=== PATIENT | female | born 1995 | race African-American/Black ===

== ENCOUNTER → 2018-07-06 | Outpatient (CLI) | payer OTHER ==
--- NOTE | 2018-07-06 11:45 | KCIC ---
MR of the right knee Indication: Posterolateral right knee pain for 2 weeks. No known injury. Technique: The standard multiplanar sequences are obtained. FINDINGS: Artifact: No significant image degradation. Medial meniscus:Intact. Lateral meniscus: Intact. Anterior cruciate ligament: Intact Posterior cruciate ligament: Intact Medial collateral ligament: Intact. Lateral structures: * Iliotibial band: Intact. * Lateral collateral ligament: Intact. * Biceps femoris tendon: Intact * Popliteus tendon attachment: Intact Extensive mechanism: * Patellar tendon: Intact * Quadriceps tendon: Intact * Retinacular structures: Intact Fluid: Trace joint effusion. No significant Dinero's cyst. Intra-articular bodies: None visualized Joint compartments * patellofemoral joint:Intact * medial compartment:Intact * lateral compartment:Intact Bones: No significant lesion or acute fracture. Soft tissue: Unremarkable Impression: No acute findings or evidence of internal derangement. Electronically signed by: Sajan Cardenas MD (07/06/2018 11:42 AM) [id number]
== END | disposition home or self-care (01) ==
LOC: KCIC MRI 09:21
PROVIDERS: ATTEND Internal Medicine
DX: M25.561 Pain in right knee (principal)
CPT/HCPCS: 73721